=== PATIENT | female | born 1970 | race Two or more races ===

== ENCOUNTER 2024-04-29 20:43 | Emergency (ER) | payer OTHER ==
[~2024-04-29] VITALS: Ht 149.9 cm; Wt 86.4 kg
[2024-04-29 20:53] VITALS: BP 122/59; RESP 16; TEMP 98.1; O2SAT 98
[2024-04-29] MEDS ORDERED: IBUP-1456 PO (21:48)
[2024-04-29 23:15] VITALS: PULSE 99
== END 2024-04-29 23:30 | disposition home or self-care (01) ==
LOC: ER 20:43
DX: S83.92XA Sprain of unspecified site of left knee, initial encounter (principal); J45.909 Unspecified asthma, uncomplicated; E11.9 Type 2 diabetes mellitus without complications; Z88.0 Allergy status to penicillin; Z90.49 Acquired absence of other specified parts of digestive tract; Z90.710 Acquired absence of both cervix and uterus; W18.09XA Striking against other object with subsequent fall, initial encounter; Y93.89 Activity, other specified; Y92.69 Other specified industrial and construction area as the place of occurrence of the external cause; Y99.8 Other external cause status
CPT/HCPCS: 29505; 73562